=== PATIENT | female | born 1950 | race African-American/Black ===

== ENCOUNTER 2021-04-30 08:00 | Outpatient (CLI) | payer BC | END 2021-04-30 08:01 | disposition home or self-care (01) | LOC: CSHMAMMO 08:00 | PROVIDERS: ATTEND Obstetrics & Gynecology | DX: Z12.31 Encounter for screening mammogram for malignant neoplasm of breast (principal); Z80.3 Family history of malignant neoplasm of breast | CPT/HCPCS: 77063; 77067 ==

== ENCOUNTER 2022-05-06 09:27 | Outpatient (CLI) | payer BC ==
[2022-05-06 10:51] LABS: Hemoglobin 11.8 g/dL (12.0-15.5); Mean Corpuscular HGB CONC 31.9 g/dL (32.0-36.0); Mean Corpuscular Volume 84.7 fl (81.6-98.3); Platelet Count 232 10x3/uL (150-450); RBC Distribution Width 14.8 % (11.5-14.5); Red Blood Cell (RBC) Count 4.37 10x6/uL (3.90-5.03); White Blood Cell (WBC) Count 4.2 10x3/uL (3.5-10.5)
[2022-05-06 11:12] LABS: Anion Gap 14 mmol/L (10-20); BUN (Urea Nitrogen) 11 mg/dL (9.8-20.1); Calc. Creatinine Clearance 0 mL/min (70-130); Calcium 9.1 mg/dL (7.8-10.44); Carbon Dioxide 28 mmol/L (23-31); Chloride 104 mmol/L (98-107); Estimated GFR 58; Glucose 75 mg/dL (80-115); Potassium 4.7 mmol/L (3.5-5.1); Sodium 141 mmol/L (136-145)
== END 2022-05-06 09:28 | disposition home or self-care (01) ==
LOC: CSHLAB 09:27
PROVIDERS: ATTEND Podiatrist Foot & Ankle Surgery
DX: Z01.818 Encounter for other preprocedural examination (principal)
CPT/HCPCS: 80048; 85027; 93005; 93010

== ENCOUNTER 2022-05-09 10:03 | Day surgery (SDC) | payer BC ==
[2022-05-07 14:56] VITALS: BMI 21.9
[2022-05-09] MEDS ORDERED: Lidocaine 1% (PF) 30 ML VIAL ONE (11:38)
[2022-05-09] MEDS ORDERED: Neomycin-Polymyxin 1 ML AMP ONE (11:39)
[2022-05-09] MEDS ORDERED: Clindamycin/D5W 600 mg/50 ml Premix Bag ONE (11:54)
[2022-05-09] MEDS ORDERED: Lidocaine 1% PF 5 ML VIAL ONE (11:57)
[2022-05-09] MEDS ORDERED: Dexamethasone 4 mg/ml Vial ONE (11:57)
[2022-05-09] MEDS ORDERED: Ondansetron PF 4 MG/2 ML Vial ONE (11:57)
[2022-05-09] MEDS ORDERED: PROPOFOL 20 ML ONE (11:57)
[2022-05-09] MEDS ORDERED: Fentanyl 100 MCG/2 ML VIAL ONE (11:57)
[2022-05-09] MEDS ORDERED: ePHEDrine Sulfate 50 MG/10 ML VIAL ONE (12:20)
[2022-05-09] MEDS ORDERED: Ropivacaine 0.2% 550 ML 550 ML NERVE BLCK SCH (12:30)
[2022-05-09] MEDS ORDERED: Zolpidem Tartrate 5 MG TAB PO PRN (12:30)
[2022-05-09] MEDS ORDERED: Ondansetron PF 4 MG/2 ML Vial IVP PRN (12:30)
[2022-05-09] MEDS ORDERED: Glycopyrrolate 0.2 MG/ML 5 ML SYRINGE ONE (12:50)
[2022-05-09] MEDS ORDERED: Ketorolac Tromethamine 30 MG/ML VIAL ONE (13:54)
== END 2022-05-09 15:30 | disposition home or self-care (01) ==
LOC: CSHSDC 10:03
PROVIDERS: ATTEND Podiatrist Foot & Ankle Surgery
PROC: 0SGM04Z Fusion of Right Metatarsal-Phalangeal Joint with Internal Fixation Device, Open Approach (ICD-10-PCS; principal; 2022-05-09)
PROC: 0SRP0JZ Replacement of Right Toe Phalangeal Joint with Synthetic Substitute, Open Approach (ICD-10-PCS; principal; 2022-05-09)
PROC: 0QBN0ZZ Excision of Right Metatarsal, Open Approach (ICD-10-PCS; principal; 2022-05-09)
PROC: 01BG0ZZ Excision of Tibial Nerve, Open Approach (ICD-10-PCS; principal; 2022-05-09)
DX: M20.5X1 Other deformities of toe(s) (acquired), right foot (principal); M20.41 Other hammer toe(s) (acquired), right foot; M20.21 Hallux rigidus, right foot; M77.41 Metatarsalgia, right foot; G57.81 Other specified mononeuropathies of right lower limb
CPT/HCPCS: A4306; C1713; C1769; C1776; J1100; J1885; J2001; J2405; J2704; J2795; J3010; J3490

== ENCOUNTER 2022-06-20 07:53 | Outpatient (CLI) | payer BC | END 2022-06-20 07:54 | disposition home or self-care (01) | LOC: CSHMAMMO 07:53 | PROVIDERS: ATTEND Obstetrics & Gynecology | DX: Z12.31 Encounter for screening mammogram for malignant neoplasm of breast (principal); Z80.3 Family history of malignant neoplasm of breast | CPT/HCPCS: 77063; 77067 ==

== ENCOUNTER 2023-01-29 10:59 | Outpatient (CLI) | payer BC | END 2023-01-29 11:00 | disposition home or self-care (01) | LOC: CSHMAMMO 10:59 | PROVIDERS: ATTEND Internal Medicine | DX: Z13.820 Encounter for screening for osteoporosis (principal); Z78.0 Asymptomatic menopausal state; M85.89 Other specified disorders of bone density and structure, multiple sites | CPT/HCPCS: 77080 ==